=== PATIENT | male | born 1985 | race African-American/Black ===

== ENCOUNTER 2019-11-29 20:39 | Emergency (ER) | payer OTHER ==
[~2019-11-29] VITALS: Ht 182.9 cm; Wt 108.9 kg
[2019-11-29] MEDS ORDERED: KEFLEX500 M1 PO (22:43)
[2019-11-29 23:07] VITALS: BP 122/84
== END 2019-11-29 23:13 | disposition home or self-care (01) ==
LOC: ER 20:39
DX: N48.5 Ulcer of penis (principal); L73.9 Follicular disorder, unspecified